=== PATIENT | male | born 1960 | race Caucasian/White ===

== ENCOUNTER 2017-12-22 09:46 | Emergency (ER) | payer OTHER ==
[2017-12-22] MEDS ORDERED: Pepcid 20 MG VIAL IV ONE ×2 (10:09→10:13)
[2017-12-22] MEDS ORDERED: solu-MEDROL 125 MG IV ONE (10:09)
[2017-12-22] MEDS ORDERED: BENADRYL 50 MG/ML IV ONE (10:09)
[2017-12-22] MEDS ORDERED: BENADRYL 50 MG/ML ONE (10:13)
[2017-12-22] MEDS ORDERED: Sodium Chloride 0.9% 500 ML 500 ML IV ONE (10:13)
[2017-12-22] MEDS ORDERED: solu-MEDROL 125 MG ONE (10:13)
[2017-12-22] MEDS ORDERED: Sodium Chloride 0.9% 500 ML 500 ML IV SCH (10:15)
--- NOTE | 2017-12-22 10:29 | ERPHSYRPT ---
- History of Present Illness Time Seen by Provider: 12/22/17 10:04 Source: patient, family () Patient Subjective Stated Complaint: pt reports starting amoxicillin 3 days ago- has taken before-reports ate waffles with maple syrup for breakfast-shortly after breakfast broke out with body wide hives-intense itching-denies sob or unusual feeling in throat or mouth Triage Nursing Assessment: pt pink warm and [id number] red hives bodywide- pt itching-very anxious upon arrival-resp nonlabored once pt calmed down-no wheezes noted Physician History: CC: allergy Hx: 57 y/o patient of Dr Shoemaker. He is on amoxil for dental problem. He has been on it for 3 days. This AM one hour ago he had itching and hives all over his body. No diff breathing or swallowing. No V/D. No hx of this in the past. Ate a normal waffle breakfast. Took benadryl 50mg po VERIFY REP. Timing/Duration: today Severity: moderate Allergies/Adverse Reactions: No Known Drug Allergies Allergy (Unverified 12/22/17 10:05) Hx Tetanus, Diphtheria Vaccination/Date Given: No Hx Influenza Vaccination/Date Given: No Hx Pneumococcal Vaccination/Date Given: No Immunizations Up to Date: Yes - Review of Systems Constitutional: No Fever, No Chills Ears, Nose, & Throat: No Throat Swelling, No Hoarse Respiratory: No Dyspnea, No Wheezing Abdominal/Gastrointestinal: No Abdominal Pain, No Nausea, No Vomiting, No Diarrhea Skin: Pruritis, Rash All Other Systems: Reviewed and Negative - Past Medical History Pertinent Past Medical History: No - Past Surgical History Past Surgical History: No - Social History Smoking Status: Current every day smoker How long have you smoked: yrs Exposure to second hand smoke: Yes Drug Use: none Patient Lives Alone: No (ervin) - Nursing Vital Signs Nursing Vital Signs: Initial Vital Signs Temperature 97.1 F 12/22/17 09:59 Pulse Rate 71 12/22/17 09:59 Respiratory Rate 18 12/22/17 09:59 Blood Pressure 148/75 12/22/17 09:59 O2 Sat by Pulse Oximetry 99 12/22/17 09:59 Pain Scale Pain Intensity 0 - Physical Exam General Appearance: alert Eye Exam: PERRL/EOMI Ears, Nose, Throat Exam: moist mucous membranes, No pharyngeal erythema Neck Exam: normal inspection, non-tender, supple Respiratory Exam: normal breath sounds, No wheezing Cardiovascular Exam: regular rate/rhythm Gastrointestinal/Abdomen Exam: soft, No tenderness, No distention Back Exam: normal inspection, normal range of motion Extremity Exam: normal inspection, normal range of motion Neurologic Exam: alert, oriented x 3, cooperative, sensation nml, No motor deficits Skin Exam: warm, dry, rash SpO2 Interpretation: normal SpO2: 99 Oxygen Delivery: Room Air - Course Nursing assessment & vital signs reviewed: Yes Ordered Tests: Medication Summary Generic Name Dose Route Start Last Admin Trade Name Freq PRN Reason Stop Dose Admin Sodium Chloride 500 mls @ 250 mls/hr 12/22/17 10:15 12/22/17 10:14 Sodium Chloride 0.9% 500 Ml IV 01/21/18 10:14 250 mls/hr .Q2H LULA Administration Discontinued Medications Generic Name Dose Route Start Last Admin Trade Name Freq PRN Reason Stop Dose Admin Diphenhydramine HCl 25 mg 12/22/17 10:09 12/22/17 10:14 Benadryl 50 Mg/Ml IV 12/22/17 10:10 25 mg STAT ONE Administration Diphenhydramine HCl Confirm 12/22/17 10:13 Benadryl 50 Mg/Ml Administered 12/22/17 10:14 Dose 50 mg .ROUTE .STK-MED ONE Famotidine 20 mg 12/22/17 10:09 12/22/17 10:14 Pepcid 20 Mg Vial IV 12/22/17 10:10 20 mg STAT ONE Administration Famotidine Confirm 12/22/17 10:13 Pepcid 20 Mg Vial Administered 12/22/17 10:14 Dose 20 mg IV .STK-MED ONE Methylprednisolone Sodium Succinate 125 mg 12/22/17 10:09 12/22/17 10:14 Solu-Medrol 125 Mg IV 12/22/17 10:10 125 mg STAT ONE Administration Methylprednisolone Sodium Succinate Confirm 12/22/17 10:13 Solu-Medrol 125 Mg Administered 12/22/17 10:14 Dose 125 mg .ROUTE .STK-MED ONE - Progress Progress Note: 12/22/17 10:33 He has allergic urticaria. No other symptoms of anaphylaxis. Benadryl, pepcid, solu medrol given. 12/22/17 11:13 Markedly improved. No further symptoms. Will stop amoxil and Rx cleocin and continue benadryl/pepcid/prednisone. Counseled pt/family regarding: diagnosis, need for follow-up - Departure Time of Disposition: 11:13 Departure Disposition: Home Clinical Impression: Allergic reaction caused by a drug Condition: Stable Critical Care Time: No Referrals: DIANNA SHOEMAKER [Primary Care Provider] - Instructions: Adverse Drug Reactions, Adult (DC) Additional Instructions: Stop amoxil. Rx cleocin. Rx pepcid. Rx benadryl. No driving today or while taking benadryl. Rx prednisone. Return for problems or concerns. Notify your oral surgery Sunday. Prescriptions: Diphenhydramine HCl [Nytol] 50 mg PO Q6H PRN PRN #20 capsule PRN Reason: allergy Clindamycin HCl 1 cap PO QID #28 capsule Famotidine 20 mg [Pepcid 20 MG] 1 tab PO BID #10 tablet Prednisone 20 mg [Deltasone 20 mg] 2 tab PO DAILY #10 tablet
[2017-12-22 11:24] VITALS: BP 100/65; PULSE 64; O2SAT 96
== END 2017-12-22 11:30 | disposition home or self-care (01) ==
LOC: ED 09:46
DX: L27.0 Generalized skin eruption due to drugs and medicaments taken internally (principal); T36.0X5A Adverse effect of penicillins, initial encounter
CPT/HCPCS: 36000; 96360; 96361; 96375; 99284; J1200; J2930

== ENCOUNTER 2024-04-08 19:41 | Emergency (ER) | payer OTHER ==
[2024-04-08 20:04] VITALS: TEMP 98.9
[2024-04-08] MEDS ORDERED: Sodium Chloride 0.9% 1000 ML 1,000 ML ONE (20:05)
[2024-04-08] MEDS ORDERED: Zofran 4 MG/2 ML VIAL ONE (20:05)
[2024-04-08] MEDS ORDERED: TORAdol 30 mg Injection ONE (20:05)
[2024-04-08] MEDS: Zofran 4 MG/2 ML VIAL IV ONE (20:08)
[2024-04-08] MEDS: Sodium Chloride 0.9% 1000 ML 1,000 ML IV SCH (20:08)
[2024-04-08] MEDS: TORAdol 30 mg Injection IV ONE (20:08)
--- NOTE | 2024-04-08 20:08 | ERPHSYRPT ---
- History of Present Illness Time Seen by Provider: 04/08/24 20:05 Source: patient Exam Limitations: no limitations Physician History: 63-year-old male presents to emergency department for evaluation of pain to his left groin that started approximately 10 AM this morning while he was on his tractor. Pain has been constant. Pain has episodes of exacerbation. Pain desc ribed as an ache that is localized to the left lower pelvis and testicle. No trauma no fever. Patient is mildly nauseous no vomiting no diaphoresis. Patient denies a history of the same. Patient otherwise feels well. He voices no other complaints or concerns at this time. Portions of this note were created with voice recognition technology. There may be grammatical, spelling, punctuation or sound alike errors Timing/Duration: today Severity: moderate Modifying Factors: Improves With: nothing Associated Symptoms: denies symptoms Allergies/Adverse Reactions: amoxicillin [From Amoxil] Allergy (Intermediate, Verified 04/08/24 19:51) Hives Hx Tetanus, Diphtheria Vaccination/Date Given: No Hx Influenza Vaccination/Date Given: No Hx Pneumococcal Vaccination/Date Given: No - Review of Systems Constitutional: No Symptoms, No Fever, No Chills Eyes: No Symptoms Ears, Nose, & Throat: No Symptoms Respiratory: No Symptoms, No Cough, No Dyspnea Cardiac: No Symptoms, No Chest Pain, No Edema, No Syncope Abdominal/Gastrointestinal: No Symptoms, No Abdominal Pain, No Nausea, No Vomiting, No Diarrhea Genitourinary Symptoms: No Symptoms, No Dysuria Musculoskeletal: No Symptoms, No Back Pain, No Neck Pain Skin: No Symptoms, No Rash Neurological: No Symptoms, No Dizziness, No Focal Weakness, No Sensory Changes Psychological: No Symptoms Endocrine: No Symptoms Hematologic/Lymphatic: No Symptoms Immunological/Allergic: No Symptoms All Other Systems: Reviewed and Negative - Past Medical History Pertinent Past Medical History: No - Past Surgical History Past Surgical History: No - Social History Smoking Status: Current every day smoker How long have you smoked: yrs Exposure to second hand smoke: Yes Drug Use: none Patient Lives Alone: No (ervin) - Nursing Vital Signs Nursing Vital Signs: Initial Vital Signs Temperature 98.9 F 04/08/24 19:52 Pulse Rate 66 04/08/24 19:52 Respiratory Rate 16 04/08/24 19:52 Blood Pressure 166/110 04/08/24 19:52 O2 Sat by Pulse Oximetry 99 04/08/24 19:52 Pain Scale Pain Intensity 3 - Physical Exam General Appearance: no apparent distress, alert Eye Exam: PERRL/EOMI, eyes nml inspection Ears, Nose, Throat Exam: normal ENT inspection, TMs normal, pharynx normal, moist mucous membranes Neck Exam: normal inspection, non-tender, supple, full range of motion Respiratory Exam: normal breath sounds, lungs clear, airway intact, No respiratory distress Cardiovascular Exam: regular rate/rhythm, normal heart sounds, normal peripheral pulses Gastrointestinal/Abdomen Exam: soft, normal bowel sounds, No tenderness, No mass Back Exam: normal inspection, normal range of motion, No CVA tenderness, No vertebral tenderness Extremity Exam: normal inspection, normal range of motion, pelvis stable Neurologic Exam: alert, oriented x 3, cooperative, normal mood/affect, nml cerebellar function, nml station & gait, sensation nml, No motor deficits Skin Exam: normal color, warm, dry, No rash Lymphatic Exam: No adenopathy SpO2 Interpretation: normal SpO2: 99 O2 Delivery: Room Air - Course Nursing assessment & vital signs reviewed: Yes - CT Exams Abdomen/Pelvis CT Interpretation: Tele-radiologist Report (Moderate diffuse fecal stasis normal appendix no new acute findings) - Radiology Ultrasound Exam Scrotal Ultrasound: discussed w/radiologist (Per radiology reports right epididymal cyst. No right or left torsion. No masses observed. Please see report for d etails) Ordered Tests: Active Orders 24 hr Category Date Time Status IV Insertion STAT Care 04/08/24 20:02 Active ABDOMEN AND PELVIS W/0 CONTRAS [CT] Stat Exams 04/08/24 20:02 Taken TESTICLE [US] Stat Exams 04/08/24 20:04 Taken CBC W DIFF Stat Lab 04/08/24 20:00 Completed CMP Stat Lab 04/08/24 20:00 Completed TROPONIN Q4H Lab 04/08/24 20:00 Completed TROPONIN Q4H Lab 04/09/24 00:15 Ordered TROPONIN Q4H Lab 04/09/24 04:15 Ordered UA W/RFX UR CULTURE Stat Lab 04/08/24 23:34 Completed Medication Summary Generic Name Dose Route Start Last Admin Trade Name Freq PRN Reason Stop Dose Admin Sodium Chloride 1,000 mls @ 100 mls/hr 04/08/24 20:15 04/08/24 20:08 Sodium Chloride 0.9% 1000 Ml IV 05/08/24 20:14 100 mls/hr .Q10H LULA Administration Discontinued Medications Generic Name Dose Route Start Last Admin Trade Name Tee PRN Reason Stop Dose Admin Ketorolac Tromethamine 30 mg 04/08/24 20:02 04/08/24 20:08 Ketorolac Tromethamine 30 Mg/Ml Inj IV 04/08/24 20:03 30 mg STAT ONE Administration Ketorolac Tromethamine Confirm 04/08/24 20:05 Ketorolac Tromethamine 30 Mg/Ml Inj Administered 04/08/24 20:06 Dose 30 mg .ROUTE .STK-MED ONE Morphine Sulfate 2 mg 04/08/24 20:54 04/08/24 20:56 Morphine Sulfate 2 Mg/Ml Inj IV 04/08/24 20:55 2 mg STAT ONE Administration Morphine Sulfate Confirm 04/08/24 20:55 Morphine Sulfate 2 Mg/Ml Inj Administered 04/08/24 20:56 Dose 2 mg .ROUTE .STK-MED ONE Ondansetron HCl 4 mg 04/08/24 20:05 04/08/24 20:08 Ondansetron Hcl 4 Mg/2 Ml Vial IV 04/08/24 20:06 4 mg STAT ONE Administration Ondansetron HCl Confirm 04/08/24 20:05 Ondansetron Hcl 4 Mg/2 Ml Vial Administered 04/08/24 20:06 Dose 4 mg .ROUTE .STK-MED ONE Lab/Rad Data: Laboratory Result Diagrams 04/08/24 20:00 04/08/24 20:00 Laboratory Results 04/08/24 04/08/24 04/08/24 Range/Units 23:34 20:00 20:00 WBC (4.23-9.07) x10^3/uL RBC (4.63-6.08) x10^6/uL Hgb (13.7-17.5) g/dL Hct (40.1-51.0) % MCV (79.0-92.2) fL MCH (25.7-32.2) pg MCHC (32.3-36.5) g/dL RDW (11.6-14.4) % Plt Count (163-337) x10^3/uL MPV (9.4-12.4) fL Gran % (34.0-67.9) % Immature Gran % (Auto) (0.001-0.429) % Nucleat RBC Rel Count (0.00-0.2) % Eos # (Auto) (0.04-0.54) x10^3/uL Immature Gran # (Auto) (0.001-0.031) x10^3u/L Absolute Lymphs (auto) (1.32-3.57) x10^3/uL Absolute Monos (auto) (0.30-0.82) x10^3/uL Absolute Nucleated RBC (0.00-0.012) x10^3u/L Lymphocytes % (21.8-53.1) % Monocytes % (5.3-12.2) % Eosinophils % (0.8-7.0) % Basophils % (0.2-1.2) % Absolute Granulocytes (1.78-5.38) x10^3/uL Basophils # (0.01-0.08) x10^3/uL Sodium 139 (135-145) mmol/L Potassium 4.1 (3.5-5.1) mmol/L Chloride 100 (98-107) mmol/L Carbon Dioxide 32 H (22-30) mmol/L Anion Gap 11.2 (5-15) MEQ/L BUN 17 (9-20) mg/dL Creatinine 0.88 (0.66-1.25) mg/dL Estimated GFR 97.2 ML/MIN Glucose 91 (74-106) mg/dL Calcium 10.0 (8.4-10.2) mg/dL Total Bilirubin 0.40 (0.2-1.3) mg/dL AST 40 (17-59) U/L ALT 38 (0-50) U/L Alkaline Phosphatase 56 (38-126) U/L Troponin I < 0.012 (0.000-0.033) ng/mL Serum Total Protein 7.5 (6.3-8.2) g/dL Albumin 4.5 (3.5-5.0) g/dL Urine Color Yellow (Yellow) Urine Appearance Clear (Clear) Urine pH 7.5 (4.6-8.0) Ur Specific [place] 1.015 (1.005-1.030) Urine Protein Negative (Negative) Urine Glucose (UA) Negative (Negative) mg/dL Urine Ketones Negative (Negative) Urine Blood Negative (Negative) Urine Nitrite Negative (Negative) Urine Bilirubin Negative (Negative) Urine Urobilinogen 0.2 (0.2) mg/dL Ur Leukocyte Esterase Negative (Negative) U Hyaline Cast (Auto) NONE SEEN (0-2) /LPF Urine Microscopic RBC 0-2 (0-5) /HPF Urine Microscopic WBC 0-2 (0-5) /HPF Ur Epithelial Cells None Seen (None Seen) /HPF Urine Bacteria None Seen (None Seen) /HPF Urine Culture Reflexed NO (NO) 04/08/24 Range/Units 20:00 WBC 5.4 (4.23-9.07) x10^3/uL RBC 4.39 L (4.63-6.08) x10^6/uL Hgb 13.9 (13.7-17.5) g/dL Hct 40.9 (40.1-51.0) % MCV 93.2 H (79.0-92.2) fL MCH 31.7 (25.7-32.2) pg MCHC 34.0 (32.3-36.5) g/dL RDW 12.4 (11.6-14.4) % Plt Count 247 (163-337) x10^3/uL MPV 10.0 (9.4-12.4) fL Gran % 38.0 (34.0-67.9) % Immature Gran % (Auto) 0.0 L (0.001-0.429) % Nucleat RBC Rel Count 0.0 (0.00-0.2) % Eos # (Auto) 0.23 (0.04-0.54) x10^3/uL Immature Gran # (Auto) 0.00 L (0.001-0.031) x10^3u/L Absolute Lymphs (auto) 2.61 (1.32-3.57) x10^3/uL Absolute Monos (auto) 0.47 (0.30-0.82) x10^3/uL Absolute Nucleated RBC 0.00 (0.00-0.012) x10^3u/L Lymphocytes % 48.3 (21.8-53.1) % Monocytes % 8.7 (5.3-12.2) % Eosinophils % 4.3 (0.8-7.0) % Basophils % 0.7 (0.2-1.2) % Absolute Granulocytes 2.05 (1.78-5.38) x10^3/uL Basophils # 0.04 (0.01-0.08) x10^3/uL Sodium (135-145) mmol/L Potassium (3.5-5.1) mmol/L Chloride (98-107) mmol/L Carbon Dioxide (22-30) mmol/L Anion Gap (5-15) MEQ/L BUN (9-20) mg/dL Creatinine (0.66-1.25) mg/dL Estimated GFR ML/MIN Glucose (74-106) mg/dL Calcium (8.4-10.2) mg/dL Total Bilirubin (0.2-1.3) mg/dL AST (17-59) U/L ALT (0-50) U/L Alkaline Phosphatase (38-126) U/L Troponin I (0.000-0.033) ng/mL Serum Total Protein (6.3-8.2) g/dL Albumin (3.5-5.0) g/dL Urine Color (Yellow) Urine Appearance (Clear) Urine pH (4.6-8.0) Ur Specific [place] (1.005-1.030) Urine Protein (Negative) Urine Glucose (UA) (Negative) mg/dL Urine Ketones (Negative) Urine Blood (Negative) Urine Nitrite (Negative) Urine Bilirubin (Negative) Urine Urobilinogen (0.2) mg/dL Ur Leukocyte Esterase (Negative) U Hyaline Cast (Auto) (0-2) /LPF Urine Microscopic RBC (0-5) /HPF Urine Microscopic WBC (0-5) /HPF Ur Epithelial Cells (None Seen) /HPF Urine Bacteria (None Seen) /HPF Urine Culture Reflexed (NO) - Progress Progress: improved Progress Note: 04/09/24 00:01 63-year-old male presents to our ED for evaluation of pain to the left groin. Pain was constant. Physical exam reveals some tenderness at the left groin. CT abdomen pelvis shows moderate diffuse fecal stasis. Normal appendix. No new acute findings. Ultrasound reveals a right epididymal cyst otherwise no torsion no masses. Patient received Toradol for pain control. Toradol improved pain did not resolve pain. Patient then received 2 mg of morphine. Pain resolved. Patient requested additional 2 mg prior to discharge. The pain comes and goes intermittently. It appears at this behavior is consistent with a possible muscular etiology possibly a pulled groin muscle. No hernia no ureteral lithiasis. No indication for further workup vital stable. Will discharge home. A prescription for Toradol forwarded to patient's pharmacy. at bedside. They voiced no other complaints or concerns at this time. Portions of this note were created with voice recognition technology. There may be grammatical, spelling, punctuation or sound alike errors Complexity problem addressed is moderate acute complicated. No critical care time. Complexity of data reviewed and analyzed is moderate. Test ordered test reviewed results analyzed and correlated clinically with history and physical exam. Risk of complication and or risk of morbidity/mortality patient management is moderate. Vital stable. Time spent to discharge patient is approximately 15 minutes. Plan of care established for shared decision making. No social determinants of health present impede follow-up. Portions of this note were created with voice recognition technology. There may be grammatical, spelling, punctuation or sound alike errors Counseled pt/family regarding: lab results, diagnosis, need for follow-up, rad results - Departure Departure Disposition: Home Clinical Impression: Right epididymal cyst, Groin pain, chronic, left, Moderate diffuse fecal stasis Condition: Stable Critical Care Time: No Referrals: LEI FARLEY MD [Primary Care Provider] - Follow up/PCP as directed Additional Instructions: Discharge/Care Plan BRENDEN RAMIREZ was seen on 04/08/24 in the Emergency Room. The patient was counseled regarding Diagnosis,Lab results, Imaging studies, need for follow up and when to return to the Emergency Room. Prescriptions given: Discharge Note I have spoken with the patient and/or caregivers. I have explained the patient's condition, diagnosis and treatment plan based on the information available to me at this time. I have answered the patient's and/or caregiver's questions and addressed any concerns. The patient and/or caregivers have as good understanding of the patient's diagnosis, condition and treatment plan as can be expected at this point. The vital signs have been stable. The patient's condition is stable and appropriate for discharge from the emergency department. The patient will pursue further outpatient evaluation with the primary care physician or other designated or consulting physician as outlined in the discharge instructions. The patient and/or caregivers are agreeable to this plan of care and follow-up instructions have been explained in detail. The patient and/or caregivers have received these instruction. The patient/and or caregivers are aware that any significant change in condition or worsening of symptoms should prompt an immediate return to this or the closest emergency department or call 911. Prescriptions: Ketorolac Trometh 10 mg Tab [TORAdol 10 MG TABLET] 10 mg PO TID 5 Days #15 tablet
[2024-04-08 20:18] LABS: Absolute Neutrophil Ct (ANC) 2.05 x10^3/uL (1.78-5.38); BASOPHIL % 0.7 % (0.2-1.2); Basophil (Absolute #) 0.04 x10^3/uL (0.01-0.08); Eosinophil % 4.3 % (0.8-7.0); Eosinophil (Absolute #) 0.23 x10^3/uL (0.04-0.54); Hematocrit 40.9 % (40.1-51.0); Hemoglobin 13.9 g/dL (13.7-17.5); Lymphocyte (Absolute #) 2.61 x10^3/uL (1.32-3.57); Lymphocytes % 48.3 % (21.8-53.1); Mean Cell Volume 93.2 fL (79.0-92.2); Mean Corpuscular Hemoglobin 31.7 pg (25.7-32.2); Monocyte (Absolute #) 0.47 x10^3/uL (0.30-0.82); Monocytes % 8.7 % (5.3-12.2); Platelet Count 247 x10^3/uL (163-337); Red Blood Count 4.39 x10^6/uL (4.63-6.08); Red Cell Distribution Width 12.4 % (11.6-14.4); White Blood Count 5.4 x10^3/uL (4.23-9.07)
[2024-04-08 20:32] LABS: ALBUMIN 4.5 g/dL (3.5-5.0); ANION GAP 11.2 MEQ/L (5-15); BILIRUBIN,TOTAL 0.4 mg/dL (0.2-1.3); Creatinine 1 0.88 mg/dL (0.66-1.25); EST GLOMERULAR FILTRATION RATE 97.2 ML/MIN; Potassium 4.1 mmol/L (3.5-5.1); Total Protein 7.5 g/dL (6.3-8.2)
[2024-04-08] MEDS ORDERED: MORPHINE SULFATE 2 MG INJ ONE ×2 (20:55→23:56)
[2024-04-08] MEDS: MORPHINE SULFATE 2 MG INJ IV ONE (20:56)
[2024-04-08 23:43] LABS: Appearance Clear (Clear); Bacteria None Seen /HPF (None Seen); Bilirubin Negative (Negative); Blood Negative (Negative); Epithelial Cells None Seen /HPF (None Seen); Glucose, Urine Negative (Negative); Hyaline Casts NONE SEEN /LPF (0-2); Ketones Negative (Negative); Leukocyte Esterase Negative (Negative); Nitrite Negative (Negative); Ph 7.5 (4.6-8.0); Protein,Urine Dip Negative (Negative); RBC 0-2 /HPF (0-5); Specific Gravity 1.015 (1.005-1.030); Urobilinogen 0.2 mg/dL (0.2); WBC 0-2 /HPF (0-5)
[2024-04-08 23:49] LABS: ADD URINE CULTURE? NO (NO)
[2024-04-09 00:01] VITALS: O2SAT 99
[2024-04-09] MEDS: MORPHINE SULFATE 2 MG INJ IV ONE (00:02)
[2024-04-09 00:11] VITALS: BP 125/78; PULSE 57; RESP 20
[2024-04-09 01:08] LABS: CHLAMYDIA DNA NOT DETECTED (NEGATIVE); GC DNA Probe NOT DETECTED (NEGATIVE)
--- NOTE | 2024-04-09 08:43 | XRAY ---
Indication: Pelvic and testicular pain. Multiple contiguous axial images obtained through the abdomen and pelvis without contrast. Comparison: May 24, 2023 Lung bases remain clear again with incidental right base calcified granuloma. Heart not enlarged. Stomach is distended with food/fluid. Noncontrasted stomach and bowel loops appear nonobstructed again with normal appendix. There remains moderate diffuse scattered colonic fecal debris throughout including rectum. Head of pancreas again demonstrates a few chronic pancreatitis calcifications. No free fluid/air. Remaining liver, gallbladder, pancreas, adrenal glands, kidneys, ureters, and bladder are unremarkable for noncontrast exam. Again mild scattered aortoiliac calcifications without AAA. Osseous structures intact again with minimal/mild degenerative changes throughout visualized spine. Stable bilateral L5 spondylolysis with grade 1 listhesis and L5-S1 fusion. No ventral or inguinal hernias. Impression: Again moderate diffuse fecal stasis, chronic pancreatitis calcifications, arteriosclerotic disease, chronic bony findings, and old granulomatous disease. No new/acute findings on this noncontrast exam.
--- NOTE | 2024-04-09 08:45 | XRAY ---
Indication: Scrotal pain. Two-dimensional testicular sonogram performed. Comparison: None Both testicles homogeneous in echogenicity with normal color perfusion. Right testicle measures 4.0 x 2.1 x 2.7 cm and left measures 3.4 x 2.0 x 3.2 cm. Right epididymis demonstrates 7 mm cyst. Remaining left and right epididymis sonographically unremarkable. No suspicious extratesticular mass or abnormal hydrocele. Impression: Right epididymal cyst. Remaining testicle sonogram is negative. Comment: Preliminary report was given.
== END 2024-04-09 00:16 | disposition home or self-care (01) ==
LOC: ED 19:41
DX: N50.3 Cyst of epididymis (principal); G89.29 Other chronic pain; R10.2 Pelvic and perineal pain; K59.89 Other specified functional intestinal disorders; Z72.0 Tobacco use
CPT/HCPCS: 36000; 36415; 74176; 76870; 80053; 81001; 84484; 85025; 87491; 87591; 96374; 96375; 96376; 99284; J1885; J2270; J2405

== ENCOUNTER 2025-07-07 10:09 | Observation (INO) | payer OTHER ==
--- NOTE | 2025-07-07 10:37 | ERPHSYRPT ---
- History of Present Illness Time Seen by Provider: 07/07/25 10:25 Historian: patient Exam Limitations: no limitations Patient Subjective Stated Complaint: patient is alert nad oreitnedx4, was sent down from [facility] to ED because he was eating turkey and got choked on it and then a huge amount of saliva came up Triage Nursing Assessment: pt is alert and oriented4, able to ambualte by self, [facility] [place], was sent to ED. skin warm dry and intact, lung sounds clear bilateral. Physician History: Patient is a 64-year-old male smoker history of prostate surgery, hyperlipidemia esophageal dilation presents to our ED as a referral from [facility] for evaluation of cough chest pressure epigastric discomfort. Symptoms started last night after eating turkey. There is some concern that patient may have food bolus impaction. However given patient's past medical history of hyperlipidemia acute coronary syndrome is on our differential. Patient's discomfort is constant. No trauma no fever. Symptoms are moderate in intensity. Patient states that burping improves her symptomology. Patient otherwise feels well. He voices no other complaints or concerns at this time. Portions of this note were created with voice recognition technology. There may be grammatical, spelling, punctuation or sound alike errors Timing/Duration: today Activities at Onset: none Quality: pressure Location: substernal Chest Pain Radiation: no radiation Severity of Pain-Max: moderate Severity of Pain-Current: mild Modifying Factors: Improves With: nothing Associated Symptoms: cough Nitro Today/Relief: no nitro taken today Aspirin Treatment Today: no aspirin today Allergies/Adverse Reactions: amoxicillin [From Amoxil] Allergy (Intermediate, Verified 04/08/24 19:51) Hives Home Medications: Famotidine 40 mg PO DAILY 07/07/25 [History] Latanoprost/Pf [Iyuzeh 0.005% Eye Drop] 1 each OP DAILY 07/07/25 [History] Simvastatin [Zocor] 10 mg PO DAILY 07/07/25 [History] Hx Tetanus, Diphtheria Vaccination/Date Given: No Hx Influenza Vaccination/Date Given: No Hx Pneumococcal Vaccination/Date Given: No Travel Risk - International Travel Have you traveled outside of the country in past 3 weeks: No - Emerging Infectious Disease Are you exhibiting symptoms associated with any current EIDs: No - Review of Systems All Other Systems: Reviewed and Negative - Past Medical History Pertinent Past Medical History: No Male Reproductive Disorders: Prostate Problems Other Medical History: restless leg - Past Surgical History Past Surgical History: No Musculoskeletal: Orthopedic Surgery Male Surgical History: Prostate Surgery Other Surgical History: 2- back surgery, prostate removal - Social History Smoking Status: Current every day smoker How long have you smoked: yrs Exposure to second hand smoke: Yes Drug Use: none - Social Determinants of Health Will the patient participate in the screening: Yes Do you worry about a steady place to live?: No Do you have any problems with any of the following?: No known problems In the past 12 months,have you had to go without utilities?: No Transportation Issues: No Has anyone in your support network made you feel unsafe?: No Have you or anyone in your house had to go w/o enough food: No - Nursing Vital Signs Nursing Vital Signs: Initial Vital Signs Temperature 97.2 F 07/07/25 10:09 Pulse Rate 60 07/07/25 10:09 Respiratory Rate 16 07/07/25 10:09 Blood Pressure 157/88 07/07/25 10:09 Pain Scale Pain Intensity 10 - Physical Exam General Appearance: no apparent distress, alert Eye Exam: PERRL/EOMI, eyes nml inspection Ears, Nose, Throat Exam: normal ENT inspection, moist mucous membranes Neck Exam: normal inspection, full range of motion Respiratory Exam: normal breath sounds, lungs clear, airway intact, No respiratory distress Cardiovascular Exam: regular rate/rhythm, normal heart sounds Gastrointestinal/Abdomen Exam: soft, tenderness (Mild epigastric tenderness), No mass Back Exam: normal inspection, No CVA tenderness, No vertebral tenderness Extremity Exam: normal inspection, normal range of motion Neurologic Exam: alert, oriented x 3, cooperative, normal mood/affect, sensation nml, No motor deficits Skin Exam: normal color, warm, dry Lymphatic Exam: No adenopathy SpO2 Interpretation: normal SpO2: 99 O2 Delivery: Room Air - Course Nursing assessment & vital signs reviewed: Yes EKG Interpreted by Me: RATE (52), Sinus Rhythm, NORMAL AXIS, NORMAL INTERVALS, NORMAL QRS - Radiology Exams Chest X-ray Interpretation: Teleradiologist Report (No new or acute finding) Ordered Tests: Active Orders 24 hr Category Date Time Status Horse Riding Coach Or Instructor STAT Care 07/07/25 10:30 Active EKG-ER Only STAT Care 07/07/25 10:29 Active IV Insertion STAT Care 07/07/25 10:29 Active Pulse Oximetry (ED) STAT Care 07/07/25 10:29 Active CHEST 1 VIEW (PORTABLE) Stat Exams 07/07/25 10:30 Completed BLOOD CULTURE Stat Lab 07/07/25 11:13 Received CBC W DIFF Stat Lab 07/07/25 10:40 Completed CMP Stat Lab 07/07/25 10:40 Completed D-DIMER QUANTITATIVE Stat Lab 07/07/25 10:40 Completed LIPASE Stat Lab 07/07/25 10:40 Completed NT PRO BNPII Stat Lab 07/07/25 10:40 Completed TROPONIN Q4H Lab 07/07/25 10:40 Completed TROPONIN Q4H Lab 07/07/25 13:00 Completed TROPONIN Q4H Lab 07/07/25 18:30 Ordered Transfer Order Routine Transfer 07/07/25 Ordered Medication Summary Discontinued Medications Generic Name Dose Route Start Last Admin Trade Name Freq PRN Reason Stop Dose Admin Glucagon 1 mg 07/07/25 12:10 07/07/25 12:39 Glucagon 1 Mg/Vial Vial IM 07/07/25 12:11 1 mg STAT ONE Administration Glucagon Confirm 07/07/25 12:37 Glucagon 1 Mg/Vial Vial Administered 07/07/25 12:38 Dose 1 mg .ROUTE .STK-MED ONE Lab/Rad Data: Laboratory Result Diagrams 07/07/25 10:40 07/07/25 10:40 Laboratory Results 07/07/25 07/07/25 07/07/25 Range/Units 13:00 10:40 10:40 WBC (4.23-9.07) x10^3/uL RBC (4.63-6.08) x10^6/uL Hgb (13.7-17.5) g/dL Hct (40.1-51.0) % MCV (79.0-92.2) fL MCH (25.7-32.2) pg MCHC (32.3-36.5) g/dL RDW (11.6-14.4) % Plt Count (163-337) x10^3/uL MPV (9.4-12.4) fL Gran % (34.0-67.9) % Immature Gran % (Auto) (0.001-0.429) % Nucleat RBC Rel Count (0.00-0.2) % Eos # (Auto) (0.04-0.54) x10^3/uL Immature Gran # (Auto) (0.001-0.031) x10^3u/L Absolute Lymphs (auto) (1.32-3.57) x10^3/uL Absolute Monos (auto) (0.30-0.82) x10^3/uL Absolute Nucleated RBC (0.00-0.012) x10^3u/L Lymphocytes % (21.8-53.1) % Monocytes % (5.3-12.2) % Eosinophils % (0.8-7.0) % Basophils % (0.2-1.2) % Absolute Granulocytes (1.78-5.38) x10^3/uL Basophils # (0.01-0.08) x10^3/uL D-Dimer 0.38 (0.0-0.50) mg/L Sodium (135-145) mmol/L Potassium (3.5-5.1) mmol/L Chloride (98-107) mmol/L Carbon Dioxide (22-30) mmol/L Anion Gap (5-15) MEQ/L BUN (9-20) mg/dL Creatinine (0.66-1.25) mg/dL Estimated GFR ML/MIN Glucose (74-106) mg/dL Calcium (8.4-10.2) mg/dL Total Bilirubin (0.2-1.3) mg/dL AST (17-59) U/L ALT (0-50) U/L Alkaline Phosphatase (38-126) U/L Troponin I < 0.012 < 0.012 (0.000-0.033) ng/mL NT-Pro-B Natriuret Pep (<300) pg/mL Serum Total Protein (6.3-8.2) g/dL Albumin (3.5-5.0) g/dL Lipase (23-300) U/L 07/07/25 07/07/25 Range/Units 10:40 10:40 WBC 4.0 L (4.23-9.07) x10^3/uL RBC 4.34 L (4.63-6.08) x10^6/uL Hgb 13.8 (13.7-17.5) g/dL Hct 40.9 (40.1-51.0) % MCV 94.2 H (79.0-92.2) fL MCH 31.8 (25.7-32.2) pg MCHC 33.7 (32.3-36.5) g/dL RDW 13.1 (11.6-14.4) % Plt Count 230 (163-337) x10^3/uL MPV 10.1 (9.4-12.4) fL Gran % 58.8 (34.0-67.9) % Immature Gran % (Auto) 0.2 (0.001-0.429) % Nucleat RBC Rel Count 0.0 (0.00-0.2) % Eos # (Auto) 0.20 (0.04-0.54) x10^3/uL Immature Gran # (Auto) 0.01 (0.001-0.031) x10^3u/L Absolute Lymphs (auto) 1.00 L (1.32-3.57) x10^3/uL Absolute Monos (auto) 0.41 (0.30-0.82) x10^3/uL Absolute Nucleated RBC 0.00 (0.00-0.012) x10^3u/L Lymphocytes % 24.8 (21.8-53.1) % Monocytes % 10.2 (5.3-12.2) % Eosinophils % 5.0 (0.8-7.0) % Basophils % 1.0 (0.2-1.2) % Absolute Granulocytes 2.37 (1.78-5.38) x10^3/uL Basophils # 0.04 (0.01-0.08) x10^3/uL D-Dimer (0.0-0.50) mg/L Sodium 140 (135-145) mmol/L Potassium 4.3 (3.5-5.1) mmol/L Chloride 107 (98-107) mmol/L Carbon Dioxide 26 (22-30) mmol/L Anion Gap 11.4 (5-15) MEQ/L BUN 28 H (9-20) mg/dL Creatinine 0.82 (0.66-1.25) mg/dL Estimated GFR 98.7 ML/MIN Glucose 110 H (74-106) mg/dL Calcium 10.4 H (8.4-10.2) mg/dL Total Bilirubin 0.80 (0.2-1.3) mg/dL AST 45 (17-59) U/L ALT 36 (0-50) U/L Alkaline Phosphatase 82 (38-126) U/L Troponin I (0.000-0.033) ng/mL NT-Pro-B Natriuret Pep 78.2 (<300) pg/mL Serum Total Protein 7.6 (6.3-8.2) g/dL Albumin 4.7 (3.5-5.0) g/dL Lipase < 10 L (23-300) U/L - Progress Progress: improved Air Movement: good Progress Note: EKG independently reviewed and interpreted by Dr. Skaggs. No acute findings observed. My interpretation is consistent with formal read by Dr. Escalante. 07/07/25 11:[address] Mari of general surgery at 12:08 PM. He advised trying a p.o. challenge with water and administering glucagon to see if symptoms improve. Notify Dr. Mari of the results of the p.o. challenge and glucagon administration. 07/07/25 12:[address] Syed Mari at 1:10 PM. Patient appears to be tolerating p.o. challenge and his symptoms have improved but not resolved. In light of patient's cardiovascular risk factors and ongoing chest discomfort patient will be admitted for cardiac rule out/further evaluation and observation of symptoms. 07/07/25 13:09 Although patient's heart score is 3 patient has ongoing chest discomfort. Patient will be admitted for further evaluation and treatment. Additionally we are unsure if patient symptoms are due to an esophageal problem or ACS. Patient will require further evaluation and observation. Plan of care discussed with patient. He agrees to admission at [facility] for further evaluation and treatment. History obtained from patient and his who is at the bedside. Differential diagnosis includes acute coronary syndrome, food impaction pneumothorax Portions of this note were created with voice recognition technology. There may be grammatical, spelling, punctuation or sound alike errors 07/07/25 13:41 Patient is a 64-year-old male smoker history of prostate surgery, hyperlipidemia esophageal dilation presents to our ED as a referral from [facility] for evaluation of cough chest pressure epigastric discomfort. Physical exam essentially nonremarkable. Laboratory workup noncontributory. D-dimer negative. Troponin negative x 2. Chest x-ray negative for acute pathology. Case discussed with hospitalist accepts admission to observation at 1:59 PM. Plan of care discussed with patient. He agrees to admission to [facility] for further evaluation and treatment. Complexity of problems addressed is moderate acute complicated. No critical care time. Complex of data reviewed and analyzed is extensive. Test ordered chest reviewed results analyzed and correlated clinically with history and physical exam. Management discussed with Dr. Mari of general surgery and hospitalist. Risk of complication and or risk of morbidity/mortality of patient management is high. Patient requires hospitalization for further evaluation and treatment. Vital stable. Time spent admit patient is approximately 15 minutes. Plan of care established for shared decision making. No social determinants of health present to impede follow-up. Portions of this note were created with voice recognition technology. There may be grammatical, spelling, punctuation or sound alike errors 07/07/25 14:[address] We considered performing a [address] scan however our CT scanner is down for QI 07/07/25 14:30 Blood Culture(s) Obtained: Yes Counseled pt/family regarding: diagnosis, need for follow-up - Departure Departure Disposition: Observation Clinical Impression: Chest pain, ACS (acute coronary syndrome), Possible food bolus impaction Condition: Stable Critical Care Time: No Referrals: VICTOR M CLARK MD [Primary Care Provider, [facility]] - Follow up/PCP as directed
[2025-07-07 10:51] LABS: BASOPHIL % 1.0 % (0.2-1.2); Basophil (Absolute #) 0.04 x10^3/uL (0.01-0.08); Eosinophil (Absolute #) 0.20 x10^3/uL (0.04-0.54); Hematocrit 40.9 % (40.1-51.0); Hemoglobin 13.8 g/dL (13.7-17.5); IMMATURE GRAN # 0.01 x10^3u/L (0.001-0.031); IMMATURE GRAN % 0.2 % (0.001-0.429); Lymphocyte (Absolute #) 1.00 x10^3/uL (1.32-3.57); Mean Corpuscular Hemoglobin 31.8 pg (25.7-32.2); Mean Corpuscular Hgb Concent. 33.7 g/dL (32.3-36.5); Monocyte (Absolute #) 0.41 x10^3/uL (0.30-0.82); NUCLEATED RBC # 0.00 x10^3u/L (0.00-0.012); NUCLEATED RBC % 0.0 % (0.00-0.2); Platelet Count 230 x10^3/uL (163-337); Red Blood Count 4.34 x10^6/uL (4.63-6.08); White Blood Count 4.0 x10^3/uL (4.23-9.07)
--- NOTE | 2025-07-07 10:59 | XRAY ---
Indication: Pain. Comparison: July 12, 2023 Portable chest unchanged again hyperinflated and clear with incidental medial right base calcified granuloma. Heart not enlarged. Bony thorax intact again with mild degenerative changes. No new/acute findings.
[2025-07-07 11:10] LABS: Calcium 10.4 mg/dL (8.4-10.2); Carbon Dioxide 26 mmol/L (22-30); Creatinine 1 0.82 mg/dL (0.66-1.25); EST GLOMERULAR FILTRATION RATE 98.7 ML/MIN; Glucose 110 mg/dL (74-106); NT PRO BNPII 78.2 pg/mL (<300); Potassium 4.3 mmol/L (3.5-5.1); SGOT/AST 45 U/L (17-59); SGPT/ALT 36 U/L (0-50); Total Protein 7.6 g/dL (6.3-8.2)
[2025-07-07] MEDS ORDERED: GlucaGen 1 MG ONE (12:37)
[2025-07-07] MEDS: GlucaGen 1 MG IM ONE (12:39)
--- NOTE | 2025-07-07 16:02 | PCM.HP ---
History of Present Illness - Chief Complaint Chief Complaint: food bolus impaction Date: 07/07/25 History of Present Illness: is a 64 year old male with pmhx of prostate cancer (s/p prostecotmy/radiation), HLD, GERD, and esophageal dilation who presented to ED 07/07/25 wit complaints of acute epigastric discomfort, throat constriction, and excessive salivation. He reported that his symptoms began the prior evening around 8:30 p.m. after eating chicken and broccoli. He experienced multiple episodes of spitting up large amounts of saliva and described a sensation of food being stuck, accompanied by tightness in the throat and an inability to vomit despite attempts. On arrival to the emergency department, his vital signs were stable. He denied chest pain at that time but endorsed persistent throat tightness and discomfort. Examination was consistent with copious salivation, without signs of airway compromise. Initial laboratory evaluation demonstrated a white blood cell count of 4.0, red blood cell count of 4.34, BUN 28, serum calcium 10.4, and otherwise unremarkable. Cardiac evaluation was performed given his cardiovascular risk factors: serial troponins were obtained twice and remained within normal limits. CXR showed hyperinflated lungs consistent with underlying obstructive changes, with an incidental medial right lower lobe calcified granuloma. No acute pulmonary infiltrates or effusions were seen. The cardiac silhouette was normal in size. Bony thorax was intact with mild degenerative changes. EKG was sinus rhythm at a rate of 52 beats per minute with normal axis, intervals, and QRS complexes, and no ischemic changes. Given the presentation immediately after ingestion of solid food, the copious salivation, and the sensation of esophageal obstruction, general surgery was consulted. Their recommendations included a trial of glucagon and a PO water challenge. The patient tolerated small sips with partial improvement of symptoms, though not full resolution. With ongoing discomfort and his known history of prior esophageal stricture requiring dilation (most recently three years ago), the decision was made to proceed with esophagogastroduodenoscopy (EGD) for diagnostic and therapeutic management. Because of his cardiovascular risk profile and the nonspecific nature of his discomfort, he was also admitted for ACS rule-out while awaiting endoscopic evaluation. - Review of Systems Constitutional: No Symptoms Eyes: No Symptoms Ears, Nose, & Throat: Other (Reports acute throat tightness and sensation of constriction after eating. Copious salivation present. Denies sore throat, rhinorrhea, congestion, or visual changes.) Respiratory: No Symptoms Cardiac: No Symptoms Abdominal/Gastrointestinal: No Symptoms Genitourinary Symptoms: No Symptoms Musculoskeletal: No Symptoms Skin: No Symptoms Neurological: No Symptoms Psychological: No Symptoms Endocrine: No Symptoms Hematologic/Lymphatic: No Symptoms Immunological/Allergic: No Symptoms Medications & Allergies Home Medications: Home Medication List Famotidine 40 mg PO DAILY 07/07/25 [History Confirmed 07/07/25] Latanoprost/Pf [Iyuzeh 0.005% Eye Drop] 1 each OP DAILY 07/07/25 [History Confirmed 07/07/25] Simvastatin [Zocor] 10 mg PO DAILY 07/07/25 [History Confirmed 07/07/25] Allergies/Adverse Reactions: Allergies Allergy/AdvReac Type Severity Reaction Status Date / Time amoxicillin [From Amoxil] Allergy Intermediate Hives Verified 04/08/24 19:51 - Past Medical History Past Medical History: No Male Reproductive Disorders: Prostate Problems, Other (prostate cancer s/p radiation and prostectomy) Comment: restless leg - Past Surgical History Past Surgical History: No Musculskeletal Surgical Hx: Orthopedic Surgery Male Surgical History: Prostate Surgery Other Surgical History: 2- back surgery, prostate removal Significant Family History: heart disease - Social History Smoking Status: Current every day smoker How long have you smoked: yrs Exposure to second hand smoke: Yes Alcohol: Rarely Drug Use: none - Social Determinants of Health Will the patient participate in the screening: Yes Do you worry about a steady place to live?: No Do you have any problems with any of the following?: No known problems In the past 12 months,have you had to go without utilities?: No Have you or anyone in your house had to go without enough: No Transportation Issues: No Has anyone in your support network made you feel unsafe?: No - Physical Exam Vital Signs: Vital Signs - 24 hr Temp Pulse Pulse Resp BP BP Pulse Ox 07/07/25 14:39 97.8 F 54 L 16 129/72 96 07/07/25 14:33 99 07/07/25 13:00 59 L 13 145/84 145/84 98 07/07/25 12:31 56 L 15 130/76 99 07/07/25 12:00 56 L 18 122/84 122/84 97 07/07/25 11:47 104 H 20 182/95 95 07/07/25 11:30 60 17 147/80 97 07/07/25 11:00 62 17 148/87 95 07/07/25 10:35 60 07/07/25 10:30 56 L 14 168/101 99 07/07/25 10:29 99 07/07/25 10:09 97.2 F 60 16 157/88 General Appearance: no apparent distress Neurologic Exam: alert, oriented x 3, cooperative Eye Exam: PERRL/EOMI Ears, Nose, Throat Exam: normal ENT inspection Neck Exam: normal inspection Respiratory Exam: normal breath sounds, lungs clear Cardiovascular Exam: normal heart sounds, bradycardia Rectal Exam: deferred Back Exam: normal inspection Extremity Exam: normal inspection Skin Exam: normal color Results - Labs Lab/Micro Results: Lab Results-Last 24 Hours 07/07/25 07/07/25 07/07/25 Range/Units 10:40 10:40 10:40 WBC 4.0 L (4.23-9.07) x10^3/uL RBC 4.34 L (4.63-6.08) x10^6/uL Hgb 13.8 (13.7-17.5) g/dL Hct 40.9 (40.1-51.0) % MCV 94.2 H (79.0-92.2) fL MCH 31.8 (25.7-32.2) pg MCHC 33.7 (32.3-36.5) g/dL RDW 13.1 (11.6-14.4) % Plt Count 230 (163-337) x10^3/uL MPV 10.1 (9.4-12.4) fL Gran % 58.8 (34.0-67.9) % Immature Gran % (Auto) 0.2 (0.001-0.429) % Nucleat RBC Rel Count 0.0 (0.00-0.2) % Eos # (Auto) 0.20 (0.04-0.54) x10^3/uL Immature Gran # (Auto) 0.01 (0.001-0.031) x10^3u/L Absolute Lymphs (auto) 1.00 L (1.32-3.57) x10^3/uL Absolute Monos (auto) 0.41 (0.30-0.82) x10^3/uL Absolute Nucleated RBC 0.00 (0.00-0.012) x10^3u/L Lymphocytes % 24.8 (21.8-53.1) % Monocytes % 10.2 (5.3-12.2) % Eosinophils % 5.0 (0.8-7.0) % Basophils % 1.0 (0.2-1.2) % Absolute Granulocytes 2.37 (1.78-5.38) x10^3/uL Basophils # 0.04 (0.01-0.08) x10^3/uL D-Dimer 0.38 (0.0-0.50) mg/L Sodium 140 (135-145) mmol/L Potassium 4.3 (3.5-5.1) mmol/L Chloride 107 (98-107) mmol/L Carbon Dioxide 26 (22-30) mmol/L Anion Gap 11.4 (5-15) MEQ/L BUN 28 H (9-20) mg/dL Creatinine 0.82 (0.66-1.25) mg/dL Estimated GFR 98.7 ML/MIN Glucose 110 H (74-106) mg/dL Calcium 10.4 H (8.4-10.2) mg/dL Total Bilirubin 0.80 (0.2-1.3) mg/dL AST 45 (17-59) U/L ALT 36 (0-50) U/L Alkaline Phosphatase 82 (38-126) U/L Troponin I (0.000-0.033) ng/mL NT-Pro-B Natriuret Pep 78.2 (<300) pg/mL Serum Total Protein 7.6 (6.3-8.2) g/dL Albumin 4.7 (3.5-5.0) g/dL Lipase < 10 L (23-300) U/L 07/07/25 07/07/25 Range/Units 10:40 13:00 WBC (4.23-9.07) x10^3/uL RBC (4.63-6.08) x10^6/uL Hgb (13.7-17.5) g/dL Hct (40.1-51.0) % MCV (79.0-92.2) fL MCH (25.7-32.2) pg MCHC (32.3-36.5) g/dL RDW (11.6-14.4) % Plt Count (163-337) x10^3/uL MPV (9.4-12.4) fL Gran % (34.0-67.9) % Immature Gran % (Auto) (0.001-0.429) % Nucleat RBC Rel Count (0.00-0.2) % Eos # (Auto) (0.04-0.54) x10^3/uL Immature Gran # (Auto) (0.001-0.031) x10^3u/L Absolute Lymphs (auto) (1.32-3.57) x10^3/uL Absolute Monos (auto) (0.30-0.82) x10^3/uL Absolute Nucleated RBC (0.00-0.012) x10^3u/L Lymphocytes % (21.8-53.1) % Monocytes % (5.3-12.2) % Eosinophils % (0.8-7.0) % Basophils % (0.2-1.2) % Absolute Granulocytes (1.78-5.38) x10^3/uL Basophils # (0.01-0.08) x10^3/uL D-Dimer (0.0-0.50) mg/L Sodium (135-145) mmol/L Potassium (3.5-5.1) mmol/L Chloride (98-107) mmol/L Carbon Dioxide (22-30) mmol/L Anion Gap (5-15) MEQ/L BUN (9-20) mg/dL Creatinine (0.66-1.25) mg/dL Estimated GFR ML/MIN Glucose (74-106) mg/dL Calcium (8.4-10.2) mg/dL Total Bilirubin (0.2-1.3) mg/dL AST (17-59) U/L ALT (0-50) U/L Alkaline Phosphatase (38-126) U/L Troponin I < 0.012 < 0.012 (0.000-0.033) ng/mL NT-Pro-B Natriuret Pep (<300) pg/mL Serum Total Protein (6.3-8.2) g/dL Albumin (3.5-5.0) g/dL Lipase (23-300) U/L - Radiology Impressions Radiology Exams & Impressions: Radiology Procedures Category Date Time Status CHEST 1 VIEW (PORTABLE) Stat Exams 07/07/25 10:30 Completed Assessment/Plan (1) Food impaction of esophagus Current Visit: Yes Status: Acute Assessment & Plan: -Sudden onset after eating chicken/broccoli; multiple episodes of spitting up copious saliva; sensation of throat constriction; inability to vomit despite attempts. History of esophageal dilation (last procedure 3 years ago). Copious salivation at bedside exam. -WBC 4.0 (normal, no leukocytosis), BUN 28 (mildly elevated, possible dehydration), Ca 10.4 (mild hypercalcemia). -Chest x-ray without acute pathology; no mediastinal widening or aspiration findings; incidental right base calcified granuloma. -NPO -Symptom-directed therapy trial: IV glucagon administered, partial relief only. -PO water challenge tolerated but incomplete symptom resolution. -General surgery consulted, proceeding with esophagogastroduodenoscopy (EGD) for definitive management. -Hearing Health Technician patient on dietary modifications (avoid large chunks of meat, chew thoroughly). Arrange outpatient GI follow-up. Code(s): T18.128A - FOOD IN ESOPHAGUS CAUSING OTHER INJURY, INITIAL ENCOUNTER; W44.F3XA - FOOD ENTERING VIA NATURAL ORIFICE, INITIAL ENCOUNTER (2) Epigastric discomfort Current Visit: Yes Status: Acute Assessment & Plan: -Epigastric pain temporally related to food bolus impaction; not associated with exertion, no radiation, and not typical for ACS. -Chest x-ray with no acute cardiopulmonary disease -EKG sinus rhythm at 52 bpm, no ischemic changes. -Symptomatic monitoring until EGD complete. -trop x 2 negative trend -BNP negative -Repeat EKG in the a.m and prn Code(s): R10.13 - EPIGASTRIC PAIN (3) History of esophageal stricture Current Visit: Yes Status: Acute Assessment & Plan: -Noted Code(s): Z87.19 - PERSONAL HISTORY OF OTHER DISEASES OF THE DIGESTIVE SYSTEM (4) HLD (hyperlipidemia) Current Visit: Yes Status: Acute Assessment & Plan: -continue statin Code(s): E78.5 - HYPERLIPIDEMIA, UNSPECIFIED (5) Smoker Current Visit: Yes Status: Acute Assessment & Plan: -Advised cessation- nicotine patch Code(s): F17.200 - NICOTINE DEPENDENCE, UNSPECIFIED, UNCOMPLICATED (6) History of prostate cancer Current Visit: Yes Status: Acute Assessment & Plan: -Past medical/surgical history, not related to current presentation. - No inpatient interventions; document for continuity of care. Code(s): Z85.46 - PERSONAL HISTORY OF MALIGNANT NEOPLASM OF PROSTATE (7) Hypercalcemia Current Visit: Yes Status: Acute Assessment & Plan: -Single elevated calcium at 10.4; etiology unclear, may be incidental or mild dehydration. No acute symptoms attributable to hypercalcemia. -Recheck calcium once euvolemic. -If persistent, consider outpatient workup (PTH level, vitamin D status). -Monitor for symptoms (polyuria, abdominal pain, mental status changes) VTE: SCD PPI: protonix Dispo: 1-2 days Plan of care >40 mins Code(s): E83.52 - HYPERCALCEMIA Telemedicine Encounter - Telemedicine Encounter Telemedicine Encounter: "The entirety of this encounter was performed via Telemedicine" This visit was performed using real-time audio and video connection between my location and thepatients locationwith the assistance of a surrogateat the patients location. Written or verbal consent was obtained from the patient/guardian to perform this visit usingnchrImageShacktelemedicine technology. Any patient questions regarding the telemedicine interaction were answered.
[2025-07-07] MEDS ORDERED: Lactated Ringers 1,000 ML IV ONE (16:09)
[2025-07-07] MEDS ORDERED: Zofran 4 MG/2 ML VIAL IV PRN (16:14)
[2025-07-07] MEDS ORDERED: Zofran 4 MG/2 ML VIAL ONE (16:26)
[2025-07-07] MEDS ORDERED: Xylocaine-Mpf 2% 5 Ml Vial ONE (16:26)
[2025-07-07] MEDS ORDERED: SUBLIMAZE 100 MCG/2 ML ONE (16:26)
[2025-07-07] MEDS ORDERED: propofoL IV ONE (16:26)
[2025-07-07] MEDS ORDERED: MAALOX ES 30 ML UNIT DOSE ONE (21:13)
[2025-07-07] MEDS ORDERED: XYLOCAINE HCl Viscous ONE (21:15)
[2025-07-07] MEDS: TYLENOL 325 MG PO PRN (21:23)
[2025-07-07] MEDS: Zocor 10MG PO SCH (21:24)
[2025-07-07] MEDS: Xalatan OP SCH (21:24)
[2025-07-07] MEDS: GI COCKTAIL 45 ML (Maalox/Lidocaine) PO ONE (21:24)
[2025-07-08 05:41] LABS: Hematocrit 38.5 % (40.1-51.0); Hemoglobin 13.0 g/dL (13.7-17.5); Mean Corpuscular Hemoglobin 31.7 pg (25.7-32.2); Mean Corpuscular Hgb Concent. 33.8 g/dL (32.3-36.5); Platelet Count 212 x10^3/uL (163-337); Red Blood Count 4.10 x10^6/uL (4.63-6.08); White Blood Count 4.0 x10^3/uL (4.23-9.07)
[2025-07-08 06:03] LABS: Calcium 9.8 mg/dL (8.4-10.2); Carbon Dioxide 25.0 mmol/L (22-30); Creatinine 1 0.84 mg/dL (0.66-1.25); EST GLOMERULAR FILTRATION RATE 98.0 ML/MIN; Glucose 99.0 mg/dL (74-106); Potassium 3.9 mmol/L (3.5-5.1); SGOT/AST 41.0 U/L (17-59); SGPT/ALT 33.0 U/L (0-50); Total Protein 7.1 g/dL (6.3-8.2)
[2025-07-08 07:06] VITALS: RESP 16
[2025-07-08] MEDS: Pepcid 20 MG PO SCH (09:42)
[2025-07-08] MEDS: NICODERM CQ 14 MG TOP SCH (09:45)
[2025-07-08] MEDS ORDERED: Zocor 10MG PO SCH (10:00)
[2025-07-08 11:38] VITALS: BP 112/59; PULSE 60; TEMP 98.5; O2SAT 97
--- NOTE | 2025-07-08 12:43 | CONS ---
The patient is 64 years old. He has had some symptoms for a few months. It has been a little progressive. He says that it happens with certain foods and it feels like it is just stuffed in there. This was a severe episode here today and he thought he was having to spit up here for several hours. They were concerned that he might have a lodged foreign body yet or that he might have a significant obstruction. He has no neck adenopathy. He is alert and oriented. His voice is satisfactory. EGD was discussed with him. IMPRESSION: Acute dysphagia. PLAN: EGD.
--- NOTE | 2025-07-08 13:32 | PCM.DS ---
Discharge Summary Date of Admission: 07/07/25 14:29 Date of Discharge: 07/08/25 Admitting Physician: OMER ACEVES MD Primary Care Provider: VICTOR M CLARK Allergies Allergies amoxicillin [From Amoxil] Allergy (Intermediate, Verified 04/08/24 19:51) [facility] Summary - Hospital Course Hospital Course: Mr. Patterson is a 64-year-old male with a past medical history of prostate cancer status post prostatectomy and radiation, hyperlipidemia, GERD, and prior esophageal dilation who presented to the ED on 07/07/25 with acute onset of epigastric discomfort, throat constriction, and excessive salivation after eating chicken and broccoli. He described a sensation of food being stuck with copious spitting of saliva and inability to vomit despite attempts. On arrival, vital signs were stable. Physical exam was notable for copious salivation but no airway compromise. Laboratory evaluation revealed WBC 4.0, RBC 4.34, BUN 28, calcium 10.4, otherwise unremarkable. Cardiac evaluation was performed given his vascular risk profile: EKG showed sinus rhythm at 52 bpm with normal intervals and no ischemic changes; chest x-ray showed hyperinflated lungs with a calcified granuloma at the medial right lower lobe but no acute pulmonary disease; cardiac silhouette was normal. Serial troponins were negative 2 and BNP was normal. Given the history of esophageal stricture and persistent obstructive symptoms, general surgery was consulted. Trial of IV glucagon and a PO water challenge provided partial but incomplete symptom relief. The patient subsequently underwent esophagogastroduodenoscopy (EGD), which revealed no residual food bolus but demonstrated early Barretts esophagus and esophagitis. Following EGD, his symptoms resolved, and he tolerated oral intake without recurrence of obstruction. He remained hemodynamically stable with no recurrence of chest or throat discomfort. ACS was ruled out with negative cardiac biomarkers and nonischemic EKGs. At discharge, he is asymptomatic, tolerating diet, and medically stable. Outpatient follow-up with gastroenterology was arranged for Barretts surveillance and management of esophagitis. Discharge Note New Diagnosis: Barretts Esophagus New Medications: Pantoprazole 40mg daily, Carafate 1 g PO QID before meals and at bedtime Follow Up: PCP/GI I spent 35 minutes [id number] with the patient on the day of discharge performing discharge exam, discussing hospital stay and discharge instructions with patient and caregivers, preparation of discharge records, prescriptions & referral forms and addressing any questions/concerns the patient had as documented above. - Vitals & Intake/Output Vital Signs: Vital Signs Temperature 98.5 F 07/08/25 11:37 Pulse Rate 60 07/08/25 11:37 Respiratory Rate 16 07/08/25 11:37 Blood Pressure 112/59 07/08/25 11:37 O2 Sat by Pulse Oximetry 97 07/08/25 11:37 Intake & Output: Intake & Output 07/06/25 07/07/25 07/08/25 07/09/25 11:59 11:59 11:59 11:59 Intake Total 960 200 Balance 960 200 Weight 82 kg 82 kg - Lab Result Diagrams: 07/08/25 05:05 07/08/25 05:05 Lab Results-Last 24 Hrs: Lab Results-Last 24 Hours 07/07/25 07/07/25 07/08/25 Range/Units 13:00 18:02 05:05 WBC 4.0 L (4.23-9.07) x10^3/uL RBC 4.10 L (4.63-6.08) x10^6/uL Hgb 13.0 L (13.7-17.5) g/dL Hct 38.5 L (40.1-51.0) % MCV 93.9 H (79.0-92.2) fL MCH 31.7 (25.7-32.2) pg MCHC 33.8 (32.3-36.5) g/dL RDW 13.2 (11.6-14.4) % Plt Count 212 (163-337) x10^3/uL MPV 10.3 (9.4-12.4) fL Sodium (135-145) mmol/L Potassium (3.5-5.1) mmol/L Chloride (98-107) mmol/L Carbon Dioxide (22-30) mmol/L Anion Gap (5-15) MEQ/L BUN (9-20) mg/dL Creatinine (0.66-1.25) mg/dL Estimated GFR ML/MIN Glucose (74-106) mg/dL Calcium (8.4-10.2) mg/dL Total Bilirubin (0.2-1.3) mg/dL AST (17-59) U/L ALT (0-50) U/L Alkaline Phosphatase (38-126) U/L Troponin I < 0.012 < 0.012 (0.000-0.033) ng/mL Serum Total Protein (6.3-8.2) g/dL Albumin (3.5-5.0) g/dL 07/08/25 Range/Units 05:05 WBC (4.23-9.07) x10^3/uL RBC (4.63-6.08) x10^6/uL Hgb (13.7-17.5) g/dL Hct (40.1-51.0) % MCV (79.0-92.2) fL MCH (25.7-32.2) pg MCHC (32.3-36.5) g/dL RDW (11.6-14.4) % Plt Count (163-337) x10^3/uL MPV (9.4-12.4) fL Sodium 139 (135-145) mmol/L Potassium 3.9 (3.5-5.1) mmol/L Chloride 107 (98-107) mmol/L Carbon Dioxide 25 (22-30) mmol/L Anion Gap 10.7 (5-15) MEQ/L BUN 22 H (9-20) mg/dL Creatinine 0.84 (0.66-1.25) mg/dL Estimated GFR 98.0 ML/MIN Glucose 99 (74-106) mg/dL Calcium 9.8 (8.4-10.2) mg/dL Total Bilirubin 0.80 (0.2-1.3) mg/dL AST 41 (17-59) U/L ALT 33 (0-50) U/L Alkaline Phosphatase 75 (38-126) U/L Troponin I (0.000-0.033) ng/mL Serum Total Protein 7.1 (6.3-8.2) g/dL Albumin 4.2 (3.5-5.0) g/dL - Radiology Exams Ordered Rad Exams-Entire Visit: Radiology Procedures Category Date Time Status CHEST 1 VIEW (PORTABLE) Stat Exams 07/07/25 10:30 Completed - Procedures and Test Procedures and Tests throughout Hospitalization: Therapy Orders & Screens 07/07/25 16:14 EKG REPEAT IN AM Comment: Diagnosis: food bolus impaction Discharge Exam General Appearance: no apparent distress Neurologic Exam: alert, oriented x 3, cooperative Eye Exam: PERRL Ears, Nose, Throat Exam: normal ENT inspection Neck Exam: normal inspection Respiratory Exam: normal breath sounds, lungs clear Cardiovascular Exam: regular rate/rhythm, normal heart sounds Gastrointestinal/Abdomen Exam: soft, normal bowel sounds Male Genitalia Exam: deferred Rectal Exam: deferred Back Exam: normal inspection Extremity Exam: normal inspection Skin Exam: normal color Final Diagnosis/Problem List - Final Discharge Diagnosis/Problem (1) Law esophagus with esophagitis Current Visit: Yes Status: Acute Assessment & Plan: Diagnosed on EGD during this admission. Initiat pantoprazole 40 mg daily and Carafate 1 g PO QID before meals and at bedtime. Executive Administrative Asst on smoking cessation, diet/lifestyle modification. GI follow-up for biopsy surveillance and long-term management. Code(s): K22.70 - LAW'S ESOPHAGUS WITHOUT DYSPLASIA; K20.90 - ESOPHAGITIS, UNSPECIFIED WITHOUT BLEEDING (2) Food impaction of esophagus Current Visit: Yes Status: Acute Assessment & Plan: Sudden onset after ingestion of solid food, obstructive symptoms with salivation. Partial relief with glucagon/water challenge; definitive evaluation with EGD. Resolved post-procedure. Executive Administrative Asst on careful chewing and dietary modifications (avoid dense meat boluses). Outpatient GI follow-up arranged. Code(s): T18.128A - FOOD IN ESOPHAGUS CAUSING OTHER INJURY, INITIAL ENCOUNTER; W44.F3XA - FOOD ENTERING VIA NATURAL ORIFICE, INITIAL ENCOUNTER (3) Epigastric discomfort Current Visit: Yes Status: Acute Assessment & Plan: Related to esophageal event; ACS ruled out. Negative troponins, BNP, and EKGs. Monitor outpatient; return if chest pain recurs. Code(s): R10.13 - EPIGASTRIC PAIN (4) History of esophageal stricture Current Visit: Yes Status: Acute Assessment & Plan: Last dilation 3 years ago. At risk for recurrence; needs ongoing GI surveillance Code(s): Z87.19 - PERSONAL HISTORY OF OTHER DISEASES OF THE DIGESTIVE SYSTEM (5) HLD (hyperlipidemia) Current Visit: Yes Status: Acute Assessment & Plan: Continue statin therapy. Lifestyle and diet modification advised. Code(s): E78.5 - HYPERLIPIDEMIA, UNSPECIFIED (6) Smoker Current Visit: Yes Status: Acute Assessment & Plan: Strongly counseled on cessation. Nicotine patch offered as adjunct. Code(s): F17.200 - NICOTINE DEPENDENCE, UNSPECIFIED, UNCOMPLICATED (7) History of prostate cancer Current Visit: Yes Status: Acute Assessment & Plan: Status post treatment; no active issues this admission. Code(s): Z85.46 - PERSONAL HISTORY OF MALIGNANT NEOPLASM OF PROSTATE (8) Hypercalcemia Current Visit: Yes Status: Acute Assessment & Plan: Resolved Code(s): E83.52 - HYPERCALCEMIA - Discharge Discharge Date: 07/08/25 Disposition: Home, Self-Care Condition: Stable Prescriptions: New Sucralfate 1 gm [Carafate 1 GM] 1 g PO ACHS 30 Days #120 tablet PANTOPRAZOLE 40 mg Tablet [Protonix 40MG Tablet] 40 mg PO QAM 30 Days #30 tab Continue Simvastatin [Zocor] 10 mg PO HS Latanoprost/Pf [Iyuzeh 0.005% Eye Drop] 1 each OP DAILY Discontinued Famotidine 40 mg PO DAILY Instructions: Law's esophagus Follow up with: VICTOR M CLARK MD [Primary Care Provider, [facility]ILY [facility]ACTICE] - 07/17/25 11:00 am ROYER PHELAN [ACTIVE STAFF, GENERAL SURGERY] - 07/23/25 11:10 am Referral Note: AT [facility]
--- NOTE | 2025-07-09 11:52 | OP ---
SURGERY DATE/TIME: 07/07/2025 [id number] PREOPERATIVE DIAGNOSIS: Acute dysphagia. POSTOPERATIVE DIAGNOSIS: Acute dysphagia. PROCEDURE: EGD. SURGEON: Santos Mari M.D. INDICATION FOR PROCEDURE: Patient presents with acute dysphagia. DESCRIPTION OF PROCEDURE: Taken to the endoscopy suite. He was intubated as there was concern there may be a foreign body. The tube was seen through the vocal cords. The scope was placed posteriorly to this. We were able to cannulate the pharyngoesophageal junction with the endotracheal tube and balloon in place without dropping the balloon at all. The pharyngoesophageal junction area seemed to be satisfactory, satisfactory diameter. The esophagus was normal down towards the EG junction. There was a light rim of esophagitis, grade 2. There were 2 vertical streaks about 2 cm each about 4 to 6 mm wide consistent with an early López's. There was a light functional squeeze here at the distal esophageal junction. I do not think it is strong enough to be achalasia, although an early achalasia is possible. I did not see any coordinated contractions, although he has had basically a general anesthetic. I did see some dysmotility and some uncoordinated contractions of the proximal mid and distal esophagus. Fundus body, antrum normal, pylorus normal. Duodenal bulb normal. Second portion normal. Scope withdrawn, looped upon itself. Maybe just a minimum hiatal hernia from below. There was no retained food or contents in the stomach at all. There was nothing retained in the esophagus at all. IMPRESSION: Most consistent with dysmotility. We may try to get a barium swallow as an outpatient. We may try to get a manometry as an outpatient. He can follow up in our office.
== END 2025-07-08 14:11 | disposition home or self-care (01) ==
LOC: ED 10:09 → MED SURG 14:29
PROVIDERS: ADMIT Internal Medicine; ATTEND Internal Medicine
DX: K22.70 Barrett's esophagus without dysplasia (principal); K20.90 Esophagitis, unspecified without bleeding; T18.128A Food in esophagus causing other injury, initial encounter; W44.F3XA Food entering into or through a natural orifice, initial encounter; R10.13 Epigastric pain; Z87.19 Personal history of other diseases of the digestive system; E78.5 Hyperlipidemia, unspecified; F17.200 Nicotine dependence, unspecified, uncomplicated; Z85.46 Personal history of malignant neoplasm of prostate; E83.52 Hypercalcemia; I10 Essential (primary) hypertension; K21.9 Gastro-esophageal reflux disease without esophagitis; R13.10 Dysphagia, unspecified; Z79.899 Other long term (current) drug therapy
CPT/HCPCS: 36415; 43235; 71045; 80053; 83690; 83880; 84484; 85025; 85027; 85379; 87040; 93005; 93041; 93268; 94760; 96372; 99285; G0378; Q3014